=== PATIENT | female | born 1965 | race Caucasian/White ===

== ENCOUNTER 2019-05-01 09:27 | Observation (INO) | payer OTHER ==
[2019-05-01] VITALS (28 sets, daily range): BP systolic 112–219; BP diastolic 55–89; PULSE 61–96; RESP 12–21; Ht 147.3 cm; Wt 70.0 kg
[~2019-05-01] VITALS: Ht 147.3 cm; Wt 70.0 kg
[~2019-05-01 09:27] MED LIST: ACET500C5 PO; ATOR20TA38 PO; DOCU250C58 PO; FAMO-96 PO; HYDR-3498 PO; METO10TA3 PO; OMEP40CA6 PO; PANT40TA4 ORAL; SULF500T5 PO
[2019-05-01] MEDS ORDERED: CEFAZOLIN 2 GM/50 ML (PMX) 50 ML IVPB ONE (10:30)
[2019-05-01] MEDS ORDERED: SOD CHLORIDE 0.9% 1,000 ML IV ONE (10:30)
[2019-05-01] MEDS ORDERED: BUPIVACAINE 0.5%/EPI (SDV) 30 ML INJ ONE (12:22)
[2019-05-01] MEDS ORDERED: POLYMYXIN/BACITRACIN 1L IRRIG ONE (12:22)
--- NOTE | 2019-05-01 12:35 | PREAC ---
Date/Time of Note Date/Time of Note DATE: 05/01/19 TIME: 12:32 Anesthesia Eval and Record Evaluation Time Pre-Procedure Interview DATE: 05/01/19 TIME: 12:32 Age 53 Sex female NPO: 8 hrs Preoperative diagnosis left side abdominal wall incisional hernia Planned procedure open repiar left side abdominal wall incisional hernia Past Medical History Past Medical History: Includes Cardio: Dyslipidemia GI: GERD, Obesity, Other (history of colostomy s/p reversal ) Surgery & Anesthesia Issues No known issue Meds Anticoagulation: No Beta Kishore within 24 hr: No Reason Beta Kishore not given: Pt. not on B-Kishore Active Scripts Metoclopramide Hcl* (Metoclopramide Hcl*) 10 Mg Tablet, 10 MG PO TID for VOMITTING, #30 TAB Prov:IRASEMA RAMIREZ MD 10/27/15 Reported Medications Pantoprazole* (Pantoprazole*) 40 Mg Tablet.dr, 1 TAB ORAL DAILY 05/01/19 Sulfasalazine* (Sulfazine*) 500 Mg Tablet, 500 MG PO BID, TAB 05/01/19 Docusate Sodium* (Colace*) 250 Mg Capsule, 250 MG PO BID, #60 CAP 05/01/19 Discontinued Reported Medications Atorvastatin Calcium* (Atorvastatin Calcium*) 20 Mg Tablet, 20 MG PO HS, TAB 08/27/15 Omeprazole* (Omeprazole*) 40 Mg Capsule.dr, 40 MG PO DAILY, CAP 08/27/15 Discontinued Scripts Hydrocodone Bit-Acetaminophen* (Reliance*) 5-325 Mg Tab, 1 TAB PO Q8 PRN for SEVERE PAIN LEVEL 7-10, #30 TAB Prov:IRASEMA RAMIREZ MD 10/27/15 Acetaminophen* (Tylophen*) 500 Mg Capsule, 500 MG PO Q6H PRN for SEVERE PAIN LEVEL 7-10, #50 TAB Prov:IRASEMA RAMIREZ MD 10/09/15 Famotidine* (Pepcid*) 20 Mg Tablet, 20 MG PO BID for 14 Days, TAB Prov:GENET PORTER DO 08/29/15 Current Medications Sodium Chloride 1,000 ml @ 75 mls/hr [id number] ONCE IV ; Start 05/01/19 at 10:30; Stop 05/01/19 at 23:49 Meds reviewed: Yes Allergies Coded Allergies: Sulfa (Sulfonamide Antibiotics) (Verified Allergy, Severe, 05/01/19) Allergies Reviewed: Yes Labs/Studies Labs Reviewed: Reviewed by anesthesiologist test: N/A (s/p hysterectomy) Pre-procedure Exam Last vitals Vital Signs Date Temp Pulse Resp B/P (MAP) Pulse Ox O2 O2 Flow FiO2 Time Delivery Rate 05/01/19 97.8 67 16 159/77 99 Room Air 11:35 (104) Airway: Adequate mouth opening, Adequate thyromental dist Mallampati: Mallampati II Teeth: Abnormal (lower partials. ) Lung: Normal Heart: Normal ASA Physical Status ASA physical status: 2 Emergency: None Planned Anesthetic General/MAC: ETT Nerve block: TAP Planned Pain Management Single shot nerve block, Parenteral pain med Pre-operative Attestations Prior to commencing anesthesia and surgery, the patient was re-evaluated, there was verification of: *The patient's identity *The results of appropriate recent lab work and preoperative vital signs *The above evaluation not changing prior to induction *Anesthetic plan, risk benefits, alternative and complications discussed with pa tient/family; questions answered; patient/family understands, accepts and wishes to proceed. Asphalt Heater Operator used DON MAYORGA MD May 01, 2019 12:35
--- NOTE | 2019-05-01 12:41 | HPN ---
Date/Time of Note Date/Time of Note DATE: 05/01/19 TIME: 12:41 Interval H&P Admission Note Pt. seen H&P reviewed: No system changes NIMA VERNON MD May 01, 2019 12:41
[2019-05-01] MEDS ORDERED: SUCCINYLCHOLINE CHLORIDE 100 MG/5 ML SYG IV ONE (12:55)
[2019-05-01] MEDS ORDERED: LIDOCAINE 2% (SDV) 5 ML INJ ONE (12:55)
[2019-05-01] MEDS ORDERED: PROPOFOL 20 ML ONE (12:55)
[2019-05-01] MEDS ORDERED: MIDAZOLAM 1 MG/ML 2 ML INJ ONE (12:55)
[2019-05-01] MEDS ORDERED: ROCURONIUM 50 MG INJ ONE ×2 (12:55→14:13)
[2019-05-01] MEDS ORDERED: FAMOTIDINE 20 MG INJ ONE (13:20)
[2019-05-01] MEDS ORDERED: ONDANSETRON 4 MG INJ ONE (13:20)
[2019-05-01] MEDS ORDERED: DEXAMETHASONE 4 MG/ML 5 ML INJ ONE (13:20)
[2019-05-01] MEDS ORDERED: CEFAZOLIN 1 GM INJ ONE (13:20)
[2019-05-01] MEDS ORDERED: FENTAnyl 50 MCG/ML VIAL ONE (13:23)
[2019-05-01] MEDS ORDERED: HYDROmorphONE 2 MG/ML SYG ONE (14:11)
[2019-05-01] MEDS ORDERED: SUGAMMADEX SODIUM 200 MG/2 ML VIAL IV ONE ×2 (14:45→14:57)
[2019-05-01] MEDS ORDERED: ROPIVACAINE 0.5 % 30 ML VIAL ONE (14:47)
[2019-05-01] MEDS ORDERED: morphine 2 MG INJ IV PRN (15:00)
[2019-05-01] MEDS ORDERED: ACETAMINOPHEN 325 MG TAB PO PRN (15:00)
[2019-05-01] MEDS ORDERED: IBUPROFEN 600 MG TAB PO PRN (15:00)
[2019-05-01] MEDS ORDERED: KETOROLAC 30 MG INJ IV PRN (15:00)
[2019-05-01] MEDS ORDERED: OXYCODONE/ACETAMINOPHEN (5/325) TAB PO PRN ×2 (15:00)
--- NOTE | 2019-05-01 15:14 | OPR ---
Date/Time of Note Date/Time of Note DATE: 05/01/19 TIME: 15:01 Operative Report Procedure Date: May 01, 2019 Preoperative Diagnosis Left lower quadrant incisional hernia Postoperative Diagnosis Left lower quadrant incisional hernia Operation/Procedure Performed 1. Open repair of left lower quadrant incisional hernia with mesh 2. Lysis of adhesions 3. Placement of drain Surgeon see signature line Tangled Yarn Spool Straightener Hever Interiano MD Anesthesia Type: general Anesthesiologist: DON MAYORGA MD Estimated Blood Loss: minimal Transfusion none Specimen Hernia sac Grafts/Implants Bard Ventralight ST Mesh size 13 x 11 cm Tubes/Drains 15 German Elian drain Complications none Pt Condition Post Procedure: stable Disposition: PACU Indications The patient is a 53-year-old female with a history of a prior colostomy and subsequent reversal who presented to the office with a painful bulge of the left lower quadrant ventral abdominal wall in the area of her prior colostomy. She had clinical signs and symptoms of a left lower quadrant incisional hernia. This was confirmed via CT scan which showed the hernia containing loops of small bowel. She was scheduled for elective open repair with mesh to prevent sequelae of hernia disease which include, but are not limited to: Incarceration and strangulation. All risks and benefits of the procedure including, but not limited to: Wound infection, excessive bleeding, postoperative seroma/hematoma formation, injury to intra-abdominal organs, hernia recurrence, chronic pain, etc. were all explained to the patient in full detail. Patient fully understood and wished to proceed with the procedure. Informed consent was obtained. Procedure Description The patient was brought to the operating room and placed supine on the operating table. Bilateral sequential compression devices were placed on both lower extremities. A dose of broad-spectrum perioperative intravenous antibiotics was given. The site of the left lower quadrant hernia was preoperatively confirmed and marked with the patient in the holding area. After the induction of smooth general endotracheal anesthesia the patient's abdomen was prepped and draped in the standard surgical fashion. A transverse incision was made over the patient's prior colostomy closure incision using a 10 blade scalpel and extended over the hernia. Incision was carried down through the skin and subcutaneous tissues using sharp dissection and Bovie electrocautery. Deep to the subcutaneous tissues a large hernia sac was identified. Flaps were raised circumferentially to the level of healthy fascia and the hernia sac was freed f rom surrounding tissues. The hernia sac was then opened atraumatically. Loops of small bowel were identified within the hernia sac. They appeared viable and nonobstructed. The bowel was reduced back into the peritoneal cavity through the hernia defect. The sac was then dissected circumferentially down to the level of the neck at the fascia. The hernia sac was then transected and passed off the field specimen. The hernia defect measured approximately 4 cm in maximal diameter. A lysis of adhesions was performed freeing adhesions of the omentum to the underside of the abdominal wall in the area of the hernia defect. Lysis of adhesions was performed to the point where we had adequate underlay for deployment of the mesh. Antibiotic irrigation was then performed. A 11 x 13cm piece of Bard Ventralight ST mesh was used to repair the hernia defect in an underlay fashion. The mesh was soaked in antibiotic irrigation prior to insertion into the field. The mesh was secured at its corners using interrupted 2-0 PDS sutures. It was then tacked circumferentially using an absorbable reticulating tacking device. With the mesh adequately secured it was noted to be tension-free and hemostatic. Further antibiotic irrigation was then performed. The fascia was then reapproximated over the mesh using #1 PDS suture. A #15 round Elian drain was then placed over the fascia to obliterate the space. It was brought out through a separate stab wound inferior to the incision, secured in place using a 2-0 nylon suture, and hooked to bulb suction. Incision was then closed in layers using running 0 Vicryl suture for Hilda's fascia. The deep subcutaneous tissues were then reapproximated using a running 3-0 Vicryl suture. 0.5% Marcaine local anesthesia was then injected around the incision. The skin was reapproximated using skin annamaria. Incision was cleaned and sterile dressings were applied as well as an abdominal binder. A tap block was performed at the end of the procedure by the anesthesiologist and will be documented separately by her. The patient was then awoken from anesthesia and transferred to the recovery room in stable condition. All counts were correct at the end of the case x2. NIMA VERNON MD May 01, 2019 15:14
[2019-05-01] MEDS ORDERED: ONDANSETRON 4 MG INJ IV PRN (15:30)
[2019-05-01] MEDS ORDERED: PROCHLORPERAZINE 10 MG INJ IV PRN ×2 (15:30→18:30)
[2019-05-01] MEDS ORDERED: FENTAnyl 50 MCG/ML VIAL IV PRN (15:30)
[2019-05-01] MEDS ORDERED: ALBUTEROL 0.083% (NEB) 2.5 MG/3 ML AMP HHN PRN (15:30)
[2019-05-01] MEDS ORDERED: DIPHENHYDRAMINE 50 MG INJ IV PRN (15:30)
[2019-05-01] MEDS ORDERED: MEPERIDINE 25 MG INJ IV PRN (15:30)
[2019-05-01] MEDS ORDERED: IPRATROPIUM (NEB) 0.5 MG/2.5 ML AMP HHN PRN (15:30)
[2019-05-01] MEDS ORDERED: HYDROmorphONE 1 MG/5 ML IV SYRINGE IV PRN ×3 (15:30)
[2019-05-01] MEDS: ONDANSETRON 4 MG INJ IV PRN ×2 (16:00→22:38)
--- NOTE | 2019-05-01 16:32 | PAC ---
Date/Time of Note Date/Time of Note DATE: 05/01/19 TIME: 16:31 Post-Anesthesia Notes Post-Anesthesia Note Last documented vital signs Vital Signs Date Temp Pulse Resp B/P (MAP) Pulse Ox O2 O2 Flow FiO2 Time Delivery Rate 05/01/19 82 14 130/75 97 Nasal 3.0 16:09 (93) Cannula 05/01/19 98.2 15:23 Activity: WNL Respiratory function: WNL Cardiovascular function: WNL Mental status: Baseline Pain reasonably controlled: Yes Hydration appropriate: Yes Nausea/Vomiting absent: Yes DON MAYORGA MD May 01, 2019 16:32
[2019-05-01] MEDS: DEXTROSE 5%-0.45% NACL 1,000 ML IV SCH (18:40)
[2019-05-01] MEDS: FAMOTIDINE 20 MG TAB PO SCH (21:03)
[2019-05-02 00:07] VITALS: BP 125/69; PULSE 83; RESP 16
[2019-05-02 01:52] VITALS: BP 143/88; PULSE 79; RESP 16
[2019-05-02 04:17] VITALS: BP 126/60; PULSE 86; RESP 16
[2019-05-02] MEDS: DEXTROSE 5%-0.45% NACL 1,000 ML IV SCH ×2 (04:21→11:00)
[2019-05-02 08:02] VITALS: BP 123/58; PULSE 87; RESP 18
[2019-05-02] MEDS: FAMOTIDINE 20 MG TAB PO SCH (09:11)
--- NOTE | 2019-05-02 09:33 | PN ---
Date/Time of Note Date/Time of Note DATE: 05/02/19 TIME: 09:30 Assessment/Plan Lines/Catheters IV Catheter Type (from Nrs): Peripheral IV Assessment/Plan Assessment/Plan 53-year-old female status post open left lower quadrant incisional hernia repair with mesh, lysis of adhesions postop day #1 * Stable * Hep-Lock IV fluids/out of bed/incentive spirometry * Discharge home * Follow-up in office in 1 week The above was discussed with the patient and nurse at the bedside. Patient understands and is agreeable treatment plan as outlined. Subjective 24 Hr Interval Summary Feeling better. Had an episode of emesis overnight. Currently denies nausea. Pain is controlled. Afebrile. Drain output 75 cc serosanguineous. Exam/Review of Systems Vital Signs Vitals Vital Signs Date Temp Pulse Resp B/P (MAP) Pulse Ox O2 O2 Flow FiO2 Time Delivery Rate 05/02/19 98.3 87 18 123/58 99 Room Air 08:02 (79) 05/02/19 3.0 04:17 Intake and Output 05/01/19 05/01/19 05/02/19 1515:00 23:00 07:00 IntakeIntake Total 1930 ml 1100 ml OutputOutput Total 130 ml 745 ml BalanceBalance 1800 ml 355 ml Exam Free Text/Dictation GENERAL: Awake, alert, oriented x 3. No acute distress. SKIN: No jaundice. HEENT: PERRLA, EOMI, No Scleral Icterus NECK: Supple without JVD CARDIOVASCULAR: S1S2, regular rate and rhythm. No murmurs appreciated. RESPIRATORY: Clear to auscultation bilaterally. ABDOMEN: Soft, bowel sounds present, nondistended, appropriate left lower quadrant incisional tenderness to palpation. No hernia recurrence. DRESSING: Dry and intact EXTREMITIES: Free range of motion x 4. No cyanosis, edema, or clubbing. NEUROLOGIC: Cranial nerves II-XII are intact. Sensation is intact grossly. Results Result Diagram: 05/02/1942005/02/19420 NIMA VERNON MD May 02, 2019 09:33
--- NOTE | 2019-05-02 09:34 | PDOCDIS ---
Discharge Instructions DIAGNOSIS Discharge Diagnosis Left lower quadrant incisional hernia CONDITION [id number] Patient Condition: [id number] Stable HOME CARE INSTRUCTIONS: [id number] Diet Instructions: [id number] Regular ACTIVITY: [id number] Activity Restrictions: [id number] Avoid heavy lifting Avoid Heavy Housework [id number] Activity Restrictions [id number] No heavy lifting over 15 Comment: pounds until cleared by physician FOLLOW UP/APPOINTMENTS Follow-up Plan Follow-up in office in 1 week NIMA VERNON MD May 02, 2019 09:34
[2019-05-02 15:46] VITALS: BP 114/54; PULSE 85; RESP 18
== END 2019-05-02 17:15 | disposition home or self-care (01) ==
LOC: SDS 09:27 → REC 15:01 → MS1 18:44
PROVIDERS: ADMIT Surgery; ATTEND Surgery
DX: K43.2 Incisional hernia without obstruction or gangrene (principal); K66.0 Peritoneal adhesions (postprocedural) (postinfection)
CPT/HCPCS: 49560; 49568; 80048; 85025; 88302; C1781; J0690; J0780; J1100; J1170; J1885; J2250; J2270; J2405; J2795; J3010; J7042; Z7500; Z7512; Z7610; 99217; G0378